=== PATIENT | female | born 1960 | race Caucasian/White ===

== ENCOUNTER 2017-01-03 04:39 | Emergency (ER) | payer OTHER ==
[~2017-01-03] VITALS: Ht 154.9 cm; Wt 64.5 kg
[~2017-01-03 04:39] MED LIST: INDOCIN50 MG PO; PERCOCET 5/31 TABLET PO
[2017-01-03] MEDS ORDERED: ERGOCALCIF50000 UNIT PO (05:05)
[2017-01-03] MEDS ORDERED: CRESTOR5 MG PO (05:05)
[2017-01-03] MEDS ORDERED: DIOVAN80 MG PO (05:07)
[2017-01-03 05:27] LABS: CHLORIDE 108 mEq/L (99-109); POTASSIUM 4.3 mEq/L (3.7-5.4); SODIUM 140 mEq/L (136-147)
[2017-01-03 05:29] LABS: GLUCOSE 137 mg/dL (70-99)
[2017-01-03 05:30] LABS: ANION GAP 11 MEQ/L (2-14)
[2017-01-03 05:32] LABS: GFR ESTIMATE (CALCULATED) > 59 mL/min/; HEMATOCRIT 39.6 % (36.0-46.0); MCH 31.5 PG (29.0-34.0); MCHC 33.6 G/DL (30.0-36.0); MCV 93.8 FL (83-99); MEAN PLAT.VOLUME 10.2 uM^3 (9.5-12.4); PLATELET COUNT 262 K/uL (156-360); RBC DIS.WIDTH-SD 44.9 % (39-53); RED BLOOD COUNT 4.22 M/uL (3.80-5.20)
[2017-01-03 05:33] LABS: UREA NITROGEN (BUN) 24 mg/dL (9-23)
[2017-01-03] MEDS ORDERED: MOTRIN600 MG PO (06:07)
[2017-01-03] MEDS ORDERED: PERCOCET 5/31 TABLET PO (06:07)
[2017-01-03] MEDS ORDERED: ZOFRAN4 MG PO (06:07)
[2017-01-03 06:30] LABS: ADD MIUA? YES; BILIRUBIN NEGATIVE; BLOOD LARGE; COLOR STRAW ((YELLOW)); GLUCOSE (STRIP) NEGATIVE; KETONES NEGATIVE; LEUKOCYTES NEGATIVE; NITRITE NEGATIVE; PROTEIN (STRIP) NEGATIVE; SPECIFIC GRAVITY 1.021 (1.000-1.030); UROBILINOGEN 0.2 MG/DL (0.2-1.0)
[2017-01-03 06:33] LABS: BACTERIA NONE SEEN /HPF; EPITHELIAL CELLS RARE /HPF; MUCUS TRACE /LPF; RED BLOOD CELLS TNTC /HPF (0-5); UCUL ADDED? YES; WHITE BLOOD CELLS 0-5 /HPF (0-5)
[2017-01-03 06:54] VITALS: BP 147/70
== END 2017-01-03 06:55 | disposition home or self-care (01) ==
LOC: EME 04:39
DX: N20.1 Calculus of ureter (principal); R11.10 Vomiting, unspecified; R31.9 Hematuria, unspecified; J45.909 Unspecified asthma, uncomplicated; I10 Essential (primary) hypertension; E78.5 Hyperlipidemia, unspecified; Z88.8 Allergy status to other drugs, medicaments and biological substances
CPT/HCPCS: 74176; 80048; 81003; 85027; 87086; 99281; 99285; J1885; J2405; J3010